=== PATIENT | male | born 1990 | race Caucasian/White ===

== ENCOUNTER 2024-02-28 14:39 | Emergency (ER) | payer BC, SELFPAY ==
[2024-02-28 14:44] VITALS: BP 126/74; PULSE 100; RESP 18; TEMP 36.9; O2SAT 99; BMI 26.6
--- NOTE | 2024-02-28 15:00 | ED.CHESTPAIN ---
HPI - Chest Pain General Chief Complaint: Chest Pain Stated Complaint: chest pain, increase heart rate, light headed Time Seen by Provider: 02/28/24 14:41 History of Present Illness HPI narrative: This 33-year-old male comes in reporting rather sudden onset of chest pain that occurred about 45 minutes prior to arrival. He was sitting in a chair doing nothing special when this pain came on. He went inside to take a couple aspirin and then came here for evaluation. He does not report any lightheadedness, shortness of breath, nausea, vomiting, or diaphoresis. He does not have any history of exercise intolerance. He has no cardiac risk factors except he states that his father had some cardiac problems but it was not a heart attack. He had a knee surgery 4 days ago. He arrives here with normal vital signs. Related Data Previous Rx's ?Medication ?Instructions ?Recorded lorazepam 1 mg tablet 0.5 - 1 mg (0.5 - 1 x 1 mg) PO 12/08/23 QDAY PRN anxiety #20 tabs dextroamphetamine-amphetamine ER 30 mg PO QDAY #30 caps 02/03/24 30 mg 24hr capsule,extend release Allergies Allergy/AdvReac Type Severity Reaction Status Date / Time No Known Drug Allergies Allergy Verified 02/28/24 14:47 Review of Systems Status of ROS Reports: 10 or more systems reviewed and unremarkable except as noted in History and below Narrative Constitutional: No fevers, no weight gain or loss. Eyes: No discharge. No vision changes. HENT: No congestion, no sore throat, no ear pain. Cardiovascular: No palpitations. Chest pain is anterior and central and is not reproducible with deep breaths or palpating in this area. Respiratory: No shortness of breath, no wheezes, no cough. Gastrointestinal: No abdominal pain, no vomiting, no diarrhea. Genitourinary: No dysuria, no hematuria. Musculoskeletal: Normal range of motion. Skin: No rashes, no pruritis. Neurological: No dizziness, weakness, sensory change, speech change. Endo/Heme/Allergies: No bruising or bleeding. No polydipsia. Pysch: no suicidality, no anxiety, no insomnia. All other systems reviewed and are negative. [facility] Medical History (Updated 02/28/24 @ 18:18 by David Sherwood MD) History of alcohol abuse ?F10.11 - Alcohol abuse, in remission (ICD-10) Family History (Updated 07/14/23 @ 12:19 by Tejal Caballero) Father Throat cancer High cholesterol High blood pressure Alcohol dependence Mother Depression Alcohol dependence Uncle Psychiatric illness Social History (Updated 07/16/23 @ 08:10 by Marie Mcgovern~[facility], [facility]) Narrative: . 3 children. Exercises 3x/week. Former smoker. What is your current living situation?: I presently have a place to live Problems where you live: no known problems In the past 12 months, utilities in danger of being shut off: no In past 12 months, lack of transportation kept you from medical appts, meetings, work, or getting things needed for daily living: no In the past 12 mos, have been you worried that your food would run out before you had money to buy more?: never true In the past 12 mos, the food you bought just didn't last and you didn't have money to buy more?: never true Smoking Status: Never smoker Do you use any of these nicotine containing products: None How often do you have a drink containing alcohol: monthly or less AUDIT-C Alcohol total score: 1 Non-prescribed substance use: denies use How often does anyone, including family, friends and others, physically hurt you: never How often does anyone, including family, friends and others, insult or talk down to you: never How often does anyone, including family, friends and others, threaten you with harm: never How often does anyone, including family, friends and others, scream or curse at you: never Little interest or pleasure in doing things: not at all Feeling down, depressed, or hopeless: not at all service: No Exam Narrative Exam Narrative: Constitutional: Well-developed, well-nourished, no acute distress. HEENT: Normocephalic, atraumatic. Neck: Normal range of motion. Nontender. Supple. Heart: Regular. No murmurs. Normal rate. Intact distal pulses. Lungs: Clear to auscultation. No chest discomfort. No wheezes, rhonchi, or rales. Abdomen: Normal bowel sounds. Nontender. No rebound tenderness. Genitalia: Deferred. Back: No midline tenderness. Normal range of motion. Extremities: Normal range of motion. No injury. Skin: Intact. No rash. Warm. No erythema or pallor. Neurologic: No altered sensation. No weakness. Alert and oriented. Psychiatric: No suicidality. No anxiety or depression. No insomnia. Nursing notes and vitals signs are reviewed. Const Vital Signs, click to edit/add: Vital Signs - 24 hr 02/28/24 14:44 02/28/24 16:45 Temperature 98.4 F Pulse Rate [Right Pulse Oximeter] 100 78 Respiratory Rate 18 16 Blood Pressure [Right Forearm] 126/74 120/79 Pulse Oximetry 99 97 Oxygen Delivery Method Room Air Room Air Course Vital Signs Vital signs: Initial Vital Signs Temperature 98.4 F 02/28/24 14:44 Temperature Source Temporal Artery Scan 02/28/24 14:44 Pulse Rate 100 02/28/24 14:44 Pulse Rhythm Regular 02/28/24 14:44 Pulse Strength 3+ Normal 02/28/24 14:44 Respiratory Rate 18 02/28/24 14:44 Blood Pressure 126/74 02/28/24 14:44 Blood Pressure Mean 91 02/28/24 14:44 Blood Pressure Position Sitting 02/28/24 14:44 Pulse Oximetry 99 02/28/24 14:44 Oxygen Delivery Method Room Air 02/28/24 14:44 Vital Signs Temperature 98.4 F 02/28/24 14:44 Pulse Rate 100 02/28/24 14:44 Respiratory Rate 18 02/28/24 14:44 Blood Pressure 126/74 02/28/24 14:44 Pulse Oximetry 99 02/28/24 14:44 Oxygen Delivery Method Room Air 02/28/24 14:44 Temperature 98.4 F 02/28/24 14:44 Pulse Rate 78 02/28/24 16:45 Respiratory Rate 16 02/28/24 16:45 Blood Pressure 120/79 02/28/24 16:45 Pulse Oximetry 97 02/28/24 16:45 Oxygen Delivery Method Room Air 02/28/24 16:45 Medications Administered Medications: Discontinued Medications Generic Name Dose Route Start Last Admin Trade Name Freq PRN Reason Stop Dose Admin Ibuprofen 600 mg 02/28/24 16:34 02/28/24 16:45 Ibuprofen 200 Mg Tablet PO 02/28/24 16:35 600 mg ONCE ONE Administration Oxycodone HCl 5 mg 02/28/24 16:13 02/28/24 16:18 Oxycodone 5 Mg Tablet PO 02/28/24 16:14 5 mg ONCE ONE Administration Oxycodone HCl 5 mg 02/28/24 17:14 02/28/24 17:19 Oxycodone 5 Mg Tablet PO 02/28/24 17:15 5 mg ONCE ONE Administration MDM - Chest Pain MDM Narrative Medical decision making narrative: This patient comes in with chest pain as described above. He did have a recent ACL reconstruction 5 days ago. He does not have a history of blood clot but it is appropriate to rule out a blood clot. His EKG shows normal findings as do all of his labs except D-dimer is elevated to around 1.3. Most likely this is related to his recent surgery but nevertheless a CT scan with IV contrast of his chest was obtained to rule out pulmonary embolism. This returns with normal findings. These results are reassuring to the patient. He is okay to be discharged home to continue current plans. Lab Data Labs: Lab Results 02/28/24 02/28/24 Range/Units 14:58 15:15 WBC 7.49 (4.50-11.00) K/uL RBC 4.78 (4.30-5.90) m/uL Hgb 14.5 (13.5-17.5) gm/dL Hct 43.1 (37.0-53.0) % MCV 90 (80-100) fL MCH 30 (26-34) pg MCHC 34 (32-36) gm/dL RDW Coeff of Caterina 11.2 L (11.5-15.5) % Plt Count 305 (140-440) K/uL Neut % (Auto) 70.3 (42.0-72.0) % Lymph % (Auto) 14.6 L (20-44) % Loup % (Auto) 8.9 (0.0-11.0) % Eos % (Auto) 5.6 (0.0-7.0) % Baso % (Auto) 0.3 (0.0-3.0) % Neut # (Auto) 5.27 (1.7-7.0) K/uL Lymph # (Auto) 1.10 (0.90-2.90) K/uL Loup # (Auto) 0.70 (0.00-0.90) K/UL Eos # (Auto) 0.42 (0.00-0.50) K/uL Baso # (Auto) 0.02 (0.00-0.30) K/uL Abs Immat Gran (auto) 0.02 (0.00-0.30) K/uL Imm/Tot Granulo (auto) 0.3 % D-Dimer Quant (PE/DVT) 1.32 H (0.00-0.50) ug/ml Sodium 135 (135-149) mmol/L Potassium 3.9 (3.6-5.1) mmol/L Chloride 98 (96-114) mmol/L Carbon Dioxide 29 (20-32) mmol/L Anion Gap 8 (7-15) mEq/L BUN 17 (5-24) mg/dL Creatinine 1.1 (0.5-1.5) mg/dL Estimated Creat Clear 92.41 Estimated GFR 91 ml/min Glucose 84 (60-115) mg/dL Calcium 9.6 (8.4-10.6) mg/dL POC Troponin I 0.01 (0.01-0.04) ng/ml ECG Data Attestation: I personally reviewed and interpreted this ECG as follows: Interpretation: Normal sinus rhythm. Rate is 80 beats per minute. There are no ST or T-wave abnormalities. Discharge Plan Discharge Clinical Impression: Atypical chest pain Patient Disposition: Home, Self-Care Condition: Stable Additional Instructions: You current plans. Use medications as prescribed and needed. Follow up with MD return if worsening. Activity Level: Activity as Tolerated Discharge Diet: Regular Prescriptions: No Action lorazepam 1 mg tablet 0.5 - 1 mg PO QDAY PRN (Reason: anxiety) Qty: 20 0RF dextroamphetamine-amphetamine 30 mg capsule,extended release 24hr 30 mg PO QDAY Qty: 30 0RF Rx Instructions: Please fill generic only Follow Up/Referrals: Harjit Martini MD [Primary Care Provider] - Stand Alone Forms: [employer] Info Instructions
--- OUTSIDE RECORDS SUMMARY | 2024-02-28 15:07 | XMS_ITS | Clinical Summary ---
Author Organization [facility] Address [place], [place] [address] Care Team Providers Care Occupational Health Physiotherapist Name Role Phone Hal Patel DO Primary Care Provider Allergies No known active allergies Medications Medication Sig Dispensed Refills Start Date End Date Status LORazepam (ATIVAN) 0.5 mg tabIndications:Social anxiety disorder Take 1 Tablet (0.5 mg) by mouth every 6 hours if needed for Anxiety. 80 tablet. 06/15/2021 Active Active Problems Problem Noted Date Diagnosed Date Umbilical hernia without obstruction and without gangrene 06/26/2021 Social anxiety disorder 06/02/2014 Controlled substance agreement signed 06/02/2014 Overview (06/02/2014): Patient agreed to limit of 30 Ativan 1 mg every 3 months Attention deficit disorder without mention of hy peractivity 09/02/2006 Immunizations Name Administration Dates Next Due DTP 05/26/1992,03/05/1991,1990 ,1990 DTaP 06/27/1995 HIB HbOC (HibTITER) 12/28/1991,03/05/1991,1990,1990 Hepatitis A (Peds) 07/11/2008,07/11/2000 Hepatitis B (Peds) 06/27/1995,01/07/1995, 995 MMR 01/26/2003,12/28/1991 Meningococcal Vaccine (Menactra) 11/14/2006 Oral Polio Vaccine 06/27/1995,05/26/1992, 991,1990 Td (Age >=7 Years) 01/26/2003 Tdap 09/30/2013 Family History Medical History Relation Name Comments Cancer Father Throat Hyperlipidemia Father Hypertension Father Psychiatric illness Mother Depressi on Psychiatric illness Paternal Uncle Heart Disease No Family History Relation Name Status Comments Father Alive Mother Alive Paternal Uncle Social History Tobacco Use Types Packs/Day Years Used Date Smoking Tobacco: Former Smokeless Tobacco: Never Tobacco Cessation:Counseling Given: Yes Alcohol Use Standard Drinks/Week Comments Yes 2 (1 standard drink = 0.6 oz pur e alcohol) 2 drinks a week PHQ-2 Answer Date Recorded PHQ-2 TOTAL SCORE 0 06/25/2021 Social Connections Answer Date Recorded Frequency of Communication with Friends and Fami ly Not on file 07/02/2023 Financial Resource Strain Answer Date R ecorded Difficulty of Paying Living Expenses Not on file 04/28/2021 Difficulty of Paying Living Expenses Not on file 04/28/2021 Sex and Gender Information Value Date Recorded Sex Assigned at Not on file Gender Identity Not on file Sexual Orientation Not on file Obstetrics History Last Filed Vital Signs Vital Sign Reading Time Taken Comments Blood Pressure 147/85 06/25/2021 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 Pulse 53 06/25/2021 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 Temperature 36.9 ??C (98.4 ??F) 06/25/2021 11:[address] Respiratory Rate 14 07/25/2014 9:37 AM CDT Oxygen Saturation 98% 06/25/2021 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 Inhaled Oxygen Concentration - - Weight 82.2 kg (181 lb 3.2 oz) 06/25/2021 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 Height 171.5 cm (5' 7.52) 06/25/2021 11:[address] Body Mass Index 27.94 06/25/2021 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 Plan of Treatment Health Maintenance Due Date Last Done Comments HIV for age 15-65 2005 Hepatitis C screening for age 18-79 2008 BMI (ht and wt on same day) for age 18+ 06/25/2022 06/25/2021, 03/16/2018, 08/30/2017, Additional history exists Depression screening for age 12+ 06/25/2022 06/25/2021, 02/14/2020, 05/12/2018, Additional history exists Tetanus booster 10/01/2023 09/30/2013, 01/26/2003 COVID-19 vaccine series ( season) 2023 08/07/2021, 06/19/2021 Influenza for age 9-49 12/28/2023 Tdap Completed 09/30/2013 Pneumococcal series for age 6-64 Aged Out No longer eligible based on patient's age to complete this topic Care Teams Occupational Health Physiotherapist Relationship Specialty Start Date End Date Hal Patel DO [address] [place] [address] PCP - General Family Practice 10/26/14
--- OUTSIDE RECORDS SUMMARY | 2024-02-28 15:07 | XMS_ITS | Clinical Summary ---
Author Organization [facility] Address [address] [place] [address] Care Team Providers Care Personalized Living Manager Nurse Name Role Phone Unavailable Primary Care Provider Unavailabl e Source Comments You are receiving this document as you are listed as the primary care provider,follow-up provider, or the patient has been referred to you for consultation.This is in compliance with the Medicare and[facility] EHR Incentive Program,which states Providers who transition their patient to another setting of careor provider of care or refers their patient to another provider of care shouldprovide summary care record for each transition of care or referral. [facility] Allergies No known active allergies Medications Medication Sig Dispensed Refills Start Date End Date Status amphetamine-dextroam phetamine (AKA ADDERALL XR) 30 MG 24 hour release capsule Take 1 Capsule (30 mg) by mouth daily. 02/25/2011 Active adapalene (AKA DIFFERIN) 0.1 % gel Apply topically every evening. 45 g 2 02/25/2011 Active Additional Information Patient not taking.Reported on 12/26/2023 LORazepam (ATIVAN) 1 MG tablet Take 0.5-1 Tablets (0.5-1 mg) by mouth daily as needed. 12/08/2023 Active Active Problems Problem Noted Date Diagnosed Date ADD (attention deficit disorder) 02/26/2011 Acne 02/26/2011 Encounters Date Type Department Care Team Description 12/26/2023 3:40 PM CDT Office Visit [facility] [address] [place] [address] Kang Clay PA-C Right knee injury, initial encounter (Primary Dx) 12/26/2023 3:25 PM CDT Ancillary Procedure [facility] [address] [place] [address] Spenser Campbell, MARIELA Acute pain of right knee from Last 3 Months Social History Tobacco Use Types Packs/Day Years Used Date Smoking Tobacco: Never Smokeless Tobacco: Never Tobacco Cessation:Counseling Given: Not Answered Alcohol Use Standard Drinks/Week Comments No 0 (1 standard drink = 0.6 oz pur e alcohol) Sex and Gender Information Value Date Recorded Sex Assigned at Not on file Gender Identity Not on file Sexual Orientation Not on file Last Filed Vital Signs Vital Sign Reading Time Taken Comments Blood Pressure 124/71 12/26/2023 3:12 PM CDT Pulse 94 12/26/2023 3:12 PM CDT Temperature 36.6 ??C (97.9 ??F) 12/26/2023 3:12 PM CD T Respiratory Rate 18 12/26/2023 3:12 PM CDT Oxygen Saturation 97% 12/26/2023 3:12 PM CDT Inhaled Oxygen Concentration - - Weight 73.5 kg (162 lb) 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/2012 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 Height 167.6 cm (5' 6) 02/25/2011 4:31 PM CDT Body Mass Index 26.15 02/25/2011 4:31 PM CDT Plan of Treatment Health Maintenance Due Date Last Done Comments Hep C Screening (Preventive Services) 1990 HIV Screening (Preventive Services) 2006 Adult Preventive Visit 2008 HepB (1) 2009 COVID-19 Vaccine (3 - 2023-2 5 season) 2023 08/07/2021, 06/19/2021 Influenza (#1) 2023 DTaP/Tdap/Td (3 - Tdap) 07/15/2033 07/16/19 24, 09/30/2013 Zoster/Shingles (1 of 2) 2040 MCV4 Completed 11/14/2006 HepA Completed 07/11/2008, 07/11/2000 HPV Vaccine Aged Out No longer eligi ble based on patient's age to complete this topic Hib Aged Out No longer eligi ble based on patient's age to complete this topic IPV (Polio) Aged Out No longer eligi ble based on patient's age to complete this topic Infant RSV Aged Out No longer eligi ble based on patient's age to complete this topic Pneumococcal Aged Out No longer eligi ble based on patient's age to complete this topic Procedures Procedure Name Priority Date/Time Associated Diagnosis Comments XR KNEE BILAT AP W/LAT/SUN/PA RT STAT 12/26/2023 3:40 PM CDT Acute pain of right knee from Last 3 Months Results * XR Knee Bilat AP W/Lat/Sun/PA Rt (12/26/2023 3:40 PM CDT) Anatomical Region Laterality Modality Lower Extremity, Knee Computed R adiography 12/26/2023 3:40 PM CDT Narrative 12/26/2023 3:53 PM CDT EXAM: XR KNEE BILAT AP W/LAT/SUN/PA RT LOCATION: [facility] DATE: 12/26/2023 INDICATION: Fell out of golf cart, landed on knee, Pain in right knee, PAIN COMPARISON: None. IMPRESSION: RIGHT KNEE: Normal joint spaces and alignment. No fracture or joint effusion. A small density near the surface of the skin in the patellar view may be a foreign body, it is separate from the bone LEFT KNEE: Negative. Procedure Note Rosales Cordoba MD - 12/26/2023 EXAM: XR KNEE BILAT AP W/LAT/SUN/PA RT LOCATION: [facility] DATE: 12/26/2023 INDICATION: Fell out of golf cart, landed on knee, Pain in right knee,PAIN COMPARISON: None. IMPRESSION: RIGHT KNEE: Normal joint spaces and alignment. No fracture or jointeffusion. A small density near the surface of the skin in the patellarview may be a foreign body, it is separate from the bone LEFT KNEE: Negative. Spenser GONZALES from Last 3 Months
--- OUTSIDE RECORDS SUMMARY | 2024-02-28 15:07 | XMS_ITS | Encounter Summary ---
Author Organization [facility] Address [address] [place] [address] Care Team Providers Care Sleever Name Role Phone Unavailable Primary Care Provider Unavailabl e Reason for Visit * Procedure/Equipment (Routine) - Incomplete Specialty Diagnoses / Procedures Referred By Brayden tian Referred To Contact Diagnoses Acute pain of right knee Procedures XR Knee Bilat AP W/Lat/Sun/PA Rt Spenser Campbell PA-C [address] [place] [id number] Referral ID Status Reason Start Date Expiration Date V isits Requested Visits Authorized [id number] Incomplete 12/26/2023 03/26/2025 1 1 Encounter Details Date Type Department Care Team (Latest Contact Info) Description 12/26/2023 3:25 PM CDT Ancillary Procedure [facility] [address] [facility] [place] [address] Spenser Campbell PA-C [address] [place] [id number] Acute pain of right knee Social History Tobacco Use Types Packs/Day Years Used Date Smoking Tobacco: Never Smokeless Tobacco: Never Alcohol Use Standard Drinks/Week Comments No 0 (1 standard drink = 0.6 oz pur e alcohol) Sex and Gender Information Value Date Recorded Sex Assigned at Not on file Gender Identity Not on file Sexual Orientation Not on file documented as of this encounter Plan of Treatment Not on file documented as of this encounter Procedures Procedure Name Priority Date/Time Associated Diagnosis Comments XR KNEE BILAT AP W/LAT/SUN/PA RT STAT 12/26/2023 3:40 PM CDT Acute pain of right knee documented in this encounter Results * XR Knee Bilat AP W/Lat/Sun/PA Rt (12/26/2023 3:40 PM CDT) Anatomical Region Laterality Modality Lower Extremity, Knee Computed R adiography 12/26/2023 3:40 PM CDT Narrative 12/26/2023 3:53 PM CDT EXAM: XR KNEE BILAT AP W/LAT/SUN/PA RT LOCATION: [facility] DATE: 12/26/2023 INDICATION: Fell out of golf [...] XR KNEE BILAT AP W/LAT/SUN/PA RT LOCATION: [facility] DATE: 12/26/2023 INDICATION: Fell out of golf cart, landed on knee, Pain in right knee,PAIN COMPARISON: None. IMPRESSION: RIGHT KNEE: Normal joint spaces and alignment. No fracture or jointeffusion. A small density near the surface of the skin in the patellarview may be a foreign body, it is separate from the bone LEFT KNEE: Negative. Spenser GONZALES documented in this encounter Visit Diagnoses Diagnosis Acute pain of right knee documented in this encounter
--- OUTSIDE RECORDS SUMMARY | 2024-02-28 15:07 | XMS_ITS | Encounter Summary ---
Author Organization [facility] Address [address], [place] [address] Care Team Providers Care Weight Tester Name Role Phone Unavailable Primary Care Provider Unavailabl e Reason for Referral * Procedure/Equipment (Routine) - Incomplete Specialty Diagnoses / Procedures Referred By Brayden tian Referred To Contact Diagnoses Acute pain of right knee Procedures XR Knee Bilat AP W/Lat/Sun/PA Rt Spenser Campbell PA-C [address], [place] [address] Referral ID Status Reason Start Date Expiration Date V isits Requested Visits Authorized [id number] Incomplete 12/26/2023 03/26/2025 1 1 Reason for Visit * Reason Comments KNEE PAIN DOI 12/26/2023 Encounter Details Date Type Department Care Team (Late st Contact Info) Description 12/26/2023 3:40 PM CDT Office Visit [facility] [place] [address] [place] [address] Kang Clay PA-C [address], [place] [id number] Right knee injury, initial encounter (Primary Dx) Social History Tobacco Use Types Packs/Day Years [...] on file documented as of this encounter Last Filed Vital Signs Vital Sign Reading Time Taken Comments Blood Pressure 124/71 12/26/2023 3:12 PM CDT Pulse 94 12/26/2023 3:12 PM CDT Temperature 36.6 ??C (97.9 ??F) 12/26/2023 3:12 PM CD T Respiratory Rate 18 12/26/2023 3:12 PM CDT Oxygen Saturation 97% 12/26/2023 3:12 PM CDT Inhaled Oxygen Concentration - - Weight - - Height - - Body Mass Index - - documented in this encounter Progress Notes * Kang Clay PA-C - 12/26/2023 3:40 PM CDT Chief Complaint Patient presents with KNEE PAIN DOI 12/26/2023 Isaak Roberts is a 33 y.o.male presents to the Urgent Care for KNEE PAIN (DOI 12/26/2023) . Pain/Trauma location: right knee pain, was golfing and fell out of gold cart, golf cleats got stuckin ground and knee popped. Symptoms began: 1 hour(s) ago. Symptoms are: gradually worsening. Pain Scale: 10/10 Pain Quality: sharp and throbbing Alleviating factors: nothing Aggravating factors: any pressure . OTC remedies tried: nothing with no relief of symptoms. Patient requests an excuse letter for work/school: No Catherine Moody [facility] 12/26/2023, 3:11 PM SUBJECTIVE: This is a 33 y.o. male who complains of right knee pain. He twisted his knee when stepping out of amoving golf cart today. He has not had significant knee issues prior. He denies numbness and tingling. He has not taken any treatment for pain. OBJECTIVE: BP 124/71 (BP Location: Right Arm, BP Cuff Size: Large) Pulse 94 Temp 97.9 ??F (36.6 ??C) (Tympanic) Resp 18 SpO2 97% Physical Exam Vitals reviewed. Constitutional: Appearance: He is well-developed. Musculoskeletal: Comments: Antalgic gait. Reduced ROM in right knee. Minimal pain with passive flexion/extension. Novarus or valgus laxity. Negative drawer test. No erythema, edema, or ecchymosis. FROM in ankle and digits. Neurological: Mental Status: He is alert and oriented to person, place, and time. Motor: Motor function is intact. Psychiatric: Mood and Affect: Mood normal. Behavior: Behavior normal. Right knee xray: Per radiologist, Normal joint spaces and alignment. No fracture or joint effusion. A small density near the surface of the skin in the patellar view may be a foreign body, it is separate from the bone ASSESSMENT / PLAN: 1. Right knee injury, initial encounter - XR Knee Bilat AP W/Lat/Sun/PA Rt; Future - Imaging is reassuring for fracture or dislocation. RICE, ibuprofen as needed. Crutches given to keep [id number], stabilizer brace also given. Ibuprofen and Tylenol given in clinic. Follow up with orthopedic urgent care clinic as discussed. - ibuprofen (MOTRIN) tablet 800 mg - acetaminophen (TYLENOL) tablet 975 mg - continue supportive cares (rest, fluids, OTC pain and fever relievers as needed) - Return to care if new onset or worsening symptoms, or if symptoms not improving as expected. Kang Clay PA-C, 12/26/2023, 5:31 PM documented in this encounter Nursing Notes * Catherine Moody CMA - 12/26/2023 3:40 PM CDT Isaak Roberts is a 33 y.o.male presents to the Urgent Care for KNEE PAIN (DOI 12/26/2023) . Pain/Trauma location: right knee pain, was golfing and fell out of gold cart, golf cleats got stuckin ground and knee popped. Symptoms began: 1 hour(s) ago. Symptoms are: gradually worsening. Pain Scale: 10/10 Pain Quality: sharp and throbbing Alleviating factors: nothing Aggravating factors: any pressure . OTC remedies tried: nothing with no relief of symptoms. Patient requests an excuse letter for work/school: No Catherine Moody CMA 12/26/2023, 3:11 PM * Lakshmi Boyce CMA - 12/26/2023 3:40 PM CDT Per Kang Clay PA-C order, give pt crutches and knee immobilizer. Instructed pt on how to use and adjust crutches and knee immobilizer. Pt verbalize understanding, no further question . Lakshmi Boyce CMA 12/26/2023, 6:04 PM documented in this encounter Plan of Treatment Not on file documented as of this encounter Results * XR Knee Bilat AP W/Lat/Sun/PA Rt (12/26/2023 3:40 PM CDT) Anatomical Region Laterality Modality Lower Extremity, Knee Computed R adiography 12/26/2023 3:40 PM CDT Narrative 12/26/2023 3:53 PM CDT EXAM: XR KNEE BILAT AP W/LAT/SUN/PA RT LOCATION: [facility] DATE: 12/26/2023 INDICATION: Fell out of [...] XR KNEE BILAT AP W/LAT/SUN/PA RT LOCATION: [facility] DATE: 12/26/2023 INDICATION: Fell out of [...] documented in this encounter Visit Diagnoses Diagnosis Right knee injury, initial encounter- Primary Acute pain of right knee documented in this encounter
[2024-02-28 15:23] LABS: Basophils Absolute Auto 0.02 K/uL (0.00-0.30); Basophils Percent Auto 0.3 % (0.0-3.0); Eosinophils Absolute Auto 0.42 K/uL (0.00-0.50); Eosinophils Percent Auto 5.6 % (0.0-7.0); Hematocrit 43.1 % (37.0-53.0); Hemoglobin* 14.5 gm/dL (13.5-17.5); Immature Granulocytes Abs Auto 0.02 K/uL (0.00-0.30); Immature Granulocytes Pct Auto 0.3 %; Lymphocytes Percent Auto 14.6 % (20-44); Mean Corpuscular HGB Conc 34 gm/dL (32-36); Mean Corpuscular Hemoglobin 30 pg (26-34); Mean Corpuscular Volume 90 fL (80-100); Monocytes Percent Auto 8.9 % (0.0-11.0); Neutrophils Absolute Auto 5.27 K/uL (1.7-7.0); Neutrophils Percent Auto 70.3 % (42.0-72.0); Platelet Count* 305 K/uL (140-440); RDW Coefficient of Variation % 11.2 % (11.5-15.5); Red Blood Count 4.78 m/uL (4.30-5.90); White Blood Count* 7.49 K/uL (4.50-11.00)
[2024-02-28 15:24] LABS: Slide Review Reflex No
[2024-02-28 15:27] LABS: Troponin, Point-of-Care* 0.01 ng/ml (0.01-0.04)
[2024-02-28 15:35] LABS: Chloride* 98 mmol/L (96-114); Potassium* 3.9 mmol/L (3.6-5.1); Sodium* 135 mmol/L (135-149)
[2024-02-28 15:38] LABS: Anion Gap 8 mEq/L (7-15); Blood Urea Nitrogen* 17 mg/dL (5-24); Carbon Dioxide* 29 mmol/L (20-32); Creatinine* 1.1 mg/dL (0.5-1.5); Est. Creatinine Clearance* 92.41; Estimated Glomerular Filt Rate 91 ml/min; Glucose* 84 mg/dL (60-115)
[2024-02-28 15:39] LABS: Calcium* 9.6 mg/dL (8.4-10.6)
[2024-02-28 15:41] LABS: D Dimer Quantitative* 1.32 ug/ml (0.00-0.50)
--- NOTE | 2024-02-28 16:13 | CRLHL7_ITS ---
For Patients: As a result of the Century Cures Act, medical imaging exams and procedure reports are released immediately into your electronic medical record. You may view this report before your referring provider. If you have questions, please contact your health care provider. INDICATION: Chest pain, elevated D-dimer. Recent surgery for ACL repair. TECHNIQUE: CT chest PE was acquired with 95 cc Isovue 370 IV contrast. COMPARISON: None available. FINDINGS: Heart and vasculature: No cardiomegaly, no pericardial effusion. Within limitations of motion artifact, no filling defects identified within the main, lobar, and contrast opacified portions of the segmental pulmonary arteries. Lungs and pleura: No evidence of pulmonary infarct. No focal consolidation. Thyroid and lower neck: No suspicious thyroid nodule. Mediastinum/javon: No lymphadenopathy. Chest wall: No axillary lymphadenopathy. Upper abdomen: No acute abnormality. Punctate nonobstructing calculus in the lower pole of the right kidney. Bones: Multilevel degenerative changes of the spine. No suspicious/aggressive focal osseous lesion. IMPRESSION: 1. No evidence of acute pulmonary embolus, within limitations of motion artifact. 2. No evidence of pulmonary infarct. No focal consolidation. Please note that all CT scans at this facility use dose modulation, iterative reconstruction, and/or weight-based dosing when appropriate to reduce radiation dose to as low as reasonably achievable. Dictated by Gely Umaña MD @ 02/28/2024 5:48:35 PM (Electronically Signed)
[2024-02-28] MEDS: OXYCODONE 5 MG TABLET PO ×2 (16:18→17:19)
[2024-02-28 16:45] VITALS: BP 120/79; PULSE 78; RESP 16; O2SAT 97
[2024-02-28] MEDS: IBUPROFEN 200 MG TABLET 600 MG PO (16:45)
[2024-02-28 18:25] VITALS: BP 141/88; PULSE 78; RESP 16; O2SAT 99
== END 2024-02-28 18:25 | disposition home or self-care (01) ==
PROVIDERS: Emergency Provider Emergency Medicine Emergency Medical Services; PCP Family Medicine
DX: R07.89 Other chest pain (principal)
CPT/HCPCS: 36415; 71275; 80048; 84484; 85025; 85379; 93005; 99284; 99285; A9270; Q9967

== ENCOUNTER 2024-12-20 00:01 | Emergency (ER) | payer OTHER, SELFPAY ==
--- OUTSIDE RECORDS SUMMARY | 2024-12-20 00:08 | XMS_ITS | Clinical Summary ---
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 Gender Identity Not on file Sexual Orientation Not on file Obstetrics History Last Filed Vital Signs Vital Sign Reading Time Taken Comments Blood Pressure 147/85 06/25/2021 11:12 AM VETERINARY MICROBIOLOGIST Pulse 53 06/25/2021 11:12 AM VETERINARY MICROBIOLOGIST Temperature 36.9 C (98.4 F) 06/25/2021 11:12 AM VETERINARY MICROBIOLOGIST Respiratory Rate 14 07/25/2014 9:37 AM CDT Oxygen Saturation 98% 06/25/2021 11:12 AM VETERINARY MICROBIOLOGIST Inhaled Oxygen Concentration - - Weight 82.2 kg (181 lb 3.2 oz) 06/25/2021 11:12 AM VETERINARY MICROBIOLOGIST Height 171.5 cm (5' 7.52) 06/25/2021 11:[address] Body Mass Index 27.94 06/25/2021 11:12 AM VETERINARY MICROBIOLOGIST Plan of Treatment Health Maintenance Due Date [...] series ( season) 2023 08/07/2021, 06/19/2021 Influenza Vaccine (#1) 2024 Hepatitis B series for 19+ Completed 06/26, 01/07/1995, 11/26/1994 Pneumococcal series for age 6-49 Aged Out No longer eligible based on patient's age to complete this topic Insurance [facility] Care Teams Construction Rep Relationship Specialty Start Date End Date Hal Patel DO [address] [place] [address] PCP - General Family Practice 10/26/14
--- OUTSIDE RECORDS SUMMARY | 2024-12-20 00:08 | XMS_ITS | Clinical Summary ---
Author Organization [facility] Address [address] [place] [address] Care Team Providers Care [place] Actor Name Role Phone Unavailable Primary Care Provider Unavailabl e Source Comments You are receiving this document as you are listed as the primary care provider,follow-up provider, or the patient has been referred to you for consultation.This is in compliance with the Medicare and[employer] EHR Incentive Program,which states Providers who transition their patient to another setting of careor provider of care or refers their patient to another provider of care shouldprovide summary care record for each transition of care or referral. [employer] Allergies No known active allergies Medications amphetamine-dex troamphetamine (AKA ADDERALL XR) 30 MG 24 hour release capsule Take 1 Capsule (30 mg) by mouth daily. 1 Active adapalene (AKA DIFFERIN) 0.1 % gel Apply topically every evening. 45 g 2 1 Active Additional Information Patient not taking.Reported on 12/26/2023 LORazepam (ATIVAN) 1 MG tablet Take 0.5-1 Tablets (0.5-1 mg) by mouth daily as needed. 4 Active Active Problems Problem Noted Date Diagnosed Date ADD (attention deficit disorder) 02/26/2011 Acne 02/26/2011 Social History Tobacco Use Types Packs/Day Years Used Date Smoking Tobacco: Never Smokeless Tobacco: Never Tobacco Cessation:Counseling Given: Not Answered Alcohol Use Standard Drinks/Week Comments No 0 (1 standard drink = 0.6 oz pur e alcohol) Sex and Gender Information Value Date Recorded Sex Assigned at Not on file Legal Sex Male 6:40 AM CDT Gender Identity Not on file Sexual Orientation Not on file Last Filed Vital Signs Vital Sign Reading Time Taken Comments Blood Pressure 124/71 12/26/2023 3:12 PM CDT Pulse 94 12/26/2023 3:12 PM CDT Temperature 36.6 C (97.9 F) 12/26/2023 3:12 PM CDT Respiratory Rate 18 12/26/2023 3:12 PM CDT Oxygen Saturation 97% 12/26/2023 3:12 PM CDT Inhaled Oxygen Concentration - - Weight 73.5 kg (162 lb) 05/25/2012 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 Height 167.6 cm (5' 6) 02/25/2011 4:31 PM CDT Body Mass Index 26.15 02/25/2011 4:31 PM CDT Plan of Treatment Health Maintenance Due Date Last Done Comments Hep C Screening (Preventive Services) 1990 HIV Screening (Preventive Services) 2006 Adult Preventive Visit 2008 HepB Vaccine (1) 2009 HPV Vaccine (1 - 3-dose SCDM series) 2017 COVID-19 Vaccine (3 - 2023-2 5 season) 2023 08/07/2021, 06/19/2021 Influenza Vaccine (#1) 2024 DTaP/Tdap/Td Vaccine (3 - Tdap) 07/15/2033 07/16/2023, 09/30/2013 Zoster/Shingles Vaccine (1 o f 2) 2040 MCV4 Vaccine Completed 11/14/2006 HepA Vaccine Completed 07/11/2008, 07/11/2000 Hib Vaccine Aged Out No longer eligi ble based on patient's age to complete this topic IPV (Polio) Vaccine Aged Out No longe r eligible based on patient's age to complete this topic Meningococcal B Vaccine Aged Out No l onger eligible based on patient's age to complete this topic Pneumococcal Vaccine Aged Out No long er eligible based on patient's age to complete this topic Insurance [facility] OUT OF STATE
[2024-12-20 00:10] VITALS: BP 119/66; PULSE 98; RESP 18; TEMP 36.1; O2SAT 94; BMI 26.6
--- NOTE | 2024-12-20 00:46 | ED_ITS ---
HPI - Wound/Laceration General Date Seen: 12/20/24 Chief Complaint: Laceration/Wound Stated Complaint: left thumb lac, syncope Time Seen by Provider: 12/20/24 00:34 Source: patient, family, RN notes reviewed and old records reviewed Mode of arrival: ambulatory Limitations: no limitations History of Present Illness HPI narrative: Patient is a very nice 34-year-old gentleman who was working in his house, cutting tile with a slip box changer, and his left thumb. It started bleeding, he then went up the stairs to show his , and felt himself going out in his words. And passed out in bedroom. He woke up he was laying on the ground he did hit his head on of able on the way down. He notes that he feels well he does have a lump on his head, he remembers walking up the stairs but nothing a fter this. He admits to me did not drink a lot of fluids and he did not eat at all today. He came in here because of the history of the syncope in the cut to his finger. No previous history of any heart issues, there is no family history of any sudden , older family members have had heart disease, but no younger people. Denies using alcohol today, or any other illicit substances. Does not have a history of previous syncope. Place: home Patient tetanus UTD: Yes Context: accidental Associated symptoms: none Treatments prior to arrival: bandage Related Data Previous Rx's ?Medication ?Instructions ?Recorded dextroamphetamine-amphetamine ER 30 mg PO QDAY #30 cap s 11/11/24 30 mg 24hr capsule,extend release lorazepam 1 mg tablet 0.5 - 1 mg (0.5 - 1 x 1 mg) PO 11/11/24 QDAY PRN anxiety #20 tabs Allergies Allergy/AdvReac Type Severity Reaction Status Date / Time No Known Drug Allergies Allergy Verified 10/06/24 08:24 Review of Systems Status of ROS: Reports: 10 or more systems reviewed and unremarkable except as noted in History and below [facility] Medical History History of alcohol abuse ?F10.11 - Alcohol abuse, 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 3 children. Exercises 3x/week. Former smoker. What is your current living situation?: I presently have a place to live Problems where you live: declined to answer In the past 12 months, utilities in danger of being shut off: no In past 12 months, lack of transportation kept you from medical appts, meetings, work, or getting things needed for daily living: no In the past 12 mos, have been you worried that your food would run out before you had money to buy more?: never true In the past 12 mos, the food you bought just didn't last and you didn't have money to buy more?: never true Smoking Status: Never smoker Do you use any of these nicotine containing products: None How often do you have a drink containing alcohol: monthly or less AUDIT-C Alcohol total score: 1 Non-prescribed substance use: denies use How often does anyone, including family, friends and others, physically hurt you : never How often does anyone, including family, friends and others, insult or talk down to you: never How often does anyone, including family, friends and others, threaten you with harm: never How often does anyone, including family, friends and others, scream or curse at you: never service: No Exam Narrative: Exam Narrative: On examination he is in no apparent distress he is pleasant alert is pupils equal round reactive to light, I can not feel any significant lumps on the back of his head worry headache, but he tells me is a little sore over his occipital area , he notes his neck is not sore, is excellent range of motion of his neck, chest is good air entry bilaterally his heart sounds are normal. Abdomen is soft. There is a small laceration of his side of his left thumb, going up over the nail on the side. Not acutely bleeding. Total length of laceration is approximately 1 in. Const: Vital Signs, click to edit/add: Vital Signs - 24 hr 12/20/24 00:10 Temperature 97.0 F L Pulse Rate [Pulse Oximeter] 98 Respiratory Rate 18 Blood Pressure [Ri ght Upper Arm] 119/66 Pulse Oximetry 94 Oxygen Delivery Me thod Room Air Course Course ED Course: Wound was cleaned out by myself with Hibiclens after soaking for 15-20 minutes, I was able the approximated very well with glue. A stack finger splint will be applied. I discussed head injury with him, given the current situation with no headache, no swelling, I do not think we need to CT scan him as he is not on any anticoagulants, ongoing issues to watch for we went over any should re-presented if these occur, we then talked about syncope, his EKG is normal, I do believe this is related to the blood and likely slight dehydration. Will come back or be seen if further issues or arise. Vital Signs Vital signs: Initial Vital Signs Temperature 97.0 F L 12/20/24 00:10 Temperature Source Temporal Artery Scan 12/20/24 00:10 Pulse Rate 98 12/20/24 00:10 Pulse Rhythm Regular 12/20/24 00:10 Respiratory Rate 18 12/20/24 00:10 Blood Pressure 119/66 12/20/24 00:10 Blood Pressure Mean 83 12/20/24 00:10 Blood Pressure Position Semi-Fowlers 12/20/24 00:10 Pulse Oximetry 94 12/20/24 00:10 Oxygen Delivery Method Room Air 12/20/24 00:10 Vital Signs Temperature 97.0 F L 12/20/24 00:10 Pulse Rate 98 12/20/24 00:10 Respiratory Rate 18 12/20/24 00:10 Blood Pressure 119/66 12/20/24 00:10 Pulse Oximetry 94 12/20/24 00:10 Oxygen Delivery Method Room Air 12/20/24 00:10 Temperature 97.0 F L 12/20/24 00:10 Pulse Rate 98 12/20/24 00:10 Respiratory Rate 18 12/20/24 00:10 Blood Pressure 119/66 12/20/24 00:10 Pulse Oximetry 94 12/20/24 00:10 Oxygen Delivery Method Room Air 12/20/24 00:10 MDM - Wound/Laceration MDM Narrative Medical decision making narrative: Life-threatening differential diagnosis considered include: Cardiac arrhythmia, acute blood loss, and intracranial bleed. Other differential diagnosis include but are not limited to vasovagal syncope, orthostatic syncope, seizure, as well as other etiologies Life-threatening differential diagnosis is considered include: Subarachnoid hemorrhage, subdural hemorrhage, epidural hemorrhage. Other differential diagnosis considered include concussion, closed head injury, or neck fracture. Medical Records Attestation: I reviewed the patient's medical records. ECG Data Attestation: I personally reviewed and interpreted this ECG as follows: ECG interpretation date: 12/20/24 Prior ECG tracings: not available for review Interpretation: EKG shows normal sinus rhythm, with mild sinus arrhythmia, ventricular rate 74, QRS is 92 QT 374 and QTC is 415 assessment normal EKG. Discharge Plan Discharge Clinical Impression: Laceration, Head injury, Syncope Patient Disposition: Home w/ Parent or Adult Condition: Stable Instructions: Syncope (ED), Head Injury (DC), Finger Laceration (ED), Skin Adhesive Care (ED) Additional Instructions: Home, rest, wear your Stack finger splint for the next 3-4 days, the glue will become heart is stitches within the 24 hour period, you may shower with this. I would suggest however not putting any bacitracin or antibiotic ointment on there causal break the glue down. Increasing redness swelling or pain in his infection until proven otherwise please come in and get seen for this. For the head injury if he have increasing nausea vomiting headache, unequal pupils problems walking or balance issues please come back and be seen I think this is a low risk issue. For the syncope I do think this is related to the blood and being dehydrated. At this becomes in a ongoing issue then further workup will be needed. Activity Level: Light activity Prescriptions: No Action dextroamphetamine-amphetamine 30 mg capsule,extended release 24hr 30 mg PO QDAY Qty: 30 0RF Rx Instructions: Please fill generic only lorazepam 1 mg tablet 0.5 - 1 mg PO QDAY PRN (Reason: anxiety) Qty: 20 0RF Follow Up/Referrals: Harjit Martini MD [Primary Care Provider, Family Practice] Stand Alone Forms: [employer] Info Instructions
[2024-12-20 01:17] VITALS: BP 110/77; PULSE 85; RESP 18
== END 2024-12-20 01:18 | disposition home or self-care (01) ==
PROVIDERS: Emergency Provider Family Medicine; PCP Family Medicine
DX: S61.012A Laceration without foreign body of left thumb without damage to nail, initial encounter (principal); W26.9XXA Contact with unspecified sharp object(s), initial encounter; R55 Syncope and collapse; S09.90XA Unspecified injury of head, initial encounter
CPT/HCPCS: 12001; 99283; 99284